=== PATIENT | female | born 1950 | race Caucasian/White ===

== ENCOUNTER 2022-01-18 21:45 | Emergency (ER) | payer OTHER, MEDICARE ==
[2022-01-18 22:02] VITALS: RESP 16; TEMP 98.9; BMI 25.2
[2022-01-18] MEDS ORDERED: FAMOTIDINE 20 MG/50 ML IVPB 20 MG/50 ML MG IVPB ONE (22:17)
[2022-01-18] MEDS ORDERED: SODIUM CHLORIDE 1,000 ML IV ONE (22:30)
[2022-01-18 22:36] LABS: HEMATOCRIT 40.1 % (32.4-45.2); HEMOGLOBIN 14.3 G/dL (10.7-15.3); MCH 30.6 pg (25.7-33.7); MCHC 35.6 g/dl (32.0-36.0); MEAN PLT VOLUME 7.4 fl (7.5-11.1); PLATELET COUNT 187.5 10^3/uL (134-434); RBC 4.66 10^6/uL (3.60-5.2); RDW 15.2 % (11.6-15.6); WHITE BLOOD COUNT 10.2 10^3/uL (4.0-10.8)
[2022-01-18 22:51] LABS: BILIRUBIN,TOTAL 0.9 mg/dl (0.2-1); CALCIUM 8.9 mg/dl (8.5-10); CREATININE 0.5 mg/dl (0.55-1.3); TOT PROT 7.2 g/dl (6.4-8.2)
== END 2022-01-19 01:21 | disposition home or self-care (01) ==
LOC: FER 21:45
PROC: 3E033GC Introduction of Other Therapeutic Substance into Peripheral Vein, Percutaneous Approach (ICD-10-PCS; principal; 2022-01-18)
PROC: 3E0337Z Introduction of Electrolytic and Water Balance Substance into Peripheral Vein, Percutaneous Approach (ICD-10-PCS; 2022-01-18)
DX: R10.13 Epigastric pain (principal)
CPT/HCPCS: 36415; 80053; 82550; 83690; 84484; 85027; 93005; 99284-25

== ENCOUNTER 2023-04-22 18:13 | Emergency (ER) | payer OTHER, MEDICARE ==
[2023-04-22 18:34] VITALS: RESP 17; BMI 25.0
[2023-04-22] MEDS ORDERED: ONDANSETRON 4 MG/2 ML VIAL IVPUSH ONE (18:38)
[2023-04-22] MEDS ORDERED: FAMOTIDINE 20 MG/50 ML IVPB 20 MG/50 ML MG IVPB ONE ×2 (18:38→19:32)
[2023-04-22] MEDS ORDERED: SODIUM CHLORIDE 0.9% 500 ML INFUS.BAG IV ONE (18:38)
[2023-04-22] MEDS ORDERED: ACETAMINOPHEN 1000 MG/100 ML BAG IVPB ONE (18:38)
[2023-04-22] MEDS ORDERED: ONDANSETRON 4 MG/2 ML VIAL ONE (19:31)
[2023-04-22] MEDS ORDERED: ACETAMINOPHEN INJECTION 100 ML IVPB ONE (19:32)
[2023-04-22 20:01] LABS: HEMATOCRIT 42.9 % (32.4-45.2); HEMOGLOBIN 14.4 G/dL (10.7-15.3); MCH 29.1 pg (25.7-33.7); MCHC 33.5 g/dl (32.0-36.0); MEAN CELL VOLUME 86.9 fl (80-96); MEAN PLT VOLUME 7.4 fl (7.5-11.1); RBC 4.94 10^6/uL (3.60-5.2); WHITE BLOOD COUNT 11.2 10^3/uL (4.0-10.8)
[2023-04-22 20:31] LABS: CALCIUM 9.6 mg/dl (8.5-10.1); CREATININE 0.5 mg/dl (0.6-1.3); POTASSIUM 3.7 mmol/L (3.5-5.1)
[2023-04-22 20:39] VITALS: BP 138/69; PULSE 93; TEMP 98.8
[2023-04-22 20:58] LABS: EPITHELIAL CELLS 0-5 /hpf; URINE MUCUS MODERATE
== END 2023-04-22 21:59 | disposition home or self-care (01) ==
LOC: SUPCPDRO 18:13 → FER 18:13
PROC: 3E033GC Introduction of Other Therapeutic Substance into Peripheral Vein, Percutaneous Approach (ICD-10-PCS; principal; 2023-04-22)
PROC: 3E033GC Introduction of Other Therapeutic Substance into Peripheral Vein, Percutaneous Approach (ICD-10-PCS; 2023-04-22)
PROC: 3E033NZ Introduction of Analgesics, Hypnotics, Sedatives into Peripheral Vein, Percutaneous Approach (ICD-10-PCS; 2023-04-22)
DX: R10.13 Epigastric pain (principal); R63.8 Other symptoms and signs concerning food and fluid intake; R53.1 Weakness; R00.0 Tachycardia, unspecified; Z20.822 Contact with and (suspected) exposure to COVID-19
CPT/HCPCS: 0241U-QW; 36415; 71046-TC-FY; 80048; 81003; 81015; 83605; 83690; 84484; 85027; 87086; 93005; 93010; 99285-25; J0131